=== PATIENT | female | born 1990 | race Two or more races ===

== ENCOUNTER 2020-01-02 11:00 | Emergency (ER) | payer MEDICAID ==
[~2020-01-02] VITALS: Ht 162.6 cm; Wt 74.2 kg
[~2020-01-02 11:00] MED LIST: ACET325T14 PO; ACET650S21 PO; DOCU-131 PO; IBUP-1222 PO; OXYC5CAP2 PO; PREN-3 PO
--- NOTE | 2020-01-02 11:28 | NUR ---
GIVEN PADS/UNDERWEAR. PROVIDER IN ROOM. PLAN LABS/US. VSS, TACHY 110S BUT ANXIOUS. DENEIS DIZZINESS/CP. CALL CANNON IN REACH. STS HAD CRAMPING YEST.
[2020-01-02 11:41] VITALS: BP 114/73
--- NOTE | 2020-01-02 11:41 | NUR ---
pt passed large blood clot. c/o dizzy. vss. given fresh pad/brief. fall precs/call tate. as
[2020-01-02 11:44] LABS: BASOPHILS # (AUTO) 0.02 x10^3/uL (0-0.1); BASOPHILS % (AUTO) 0 % (0-1); EOSINOPHILS % (AUTO) 1 % (1-7); LYMPHOCYTES # (AUTO) 1.22 x10^3/uL (1-3.4); LYMPHOCYTES % (AUTO) 15 % (22-44); MD NO; MEAN CORPUSCULAR HEMOGLOBIN 28.9 pg (27.0-34.8); MEAN CORPUSCULAR HGB CONC 33.7 g/dL (32.4-35.8); MEAN CORPUSCULAR VOLUME 85.8 fL (80-100); MEAN PLATELET VOLUME 9.8 fL (7.4-10.4); MONOCYTES # (AUTO) 0.62 x10^3/uL (0.2-0.8); MONOCYTES % (AUTO) 8 % (2-9); NEUTROPHILS # (AUTO) 6.27 x10^3/uL (1.8-6.8); NEUTROPHILS % (AUTO) 76 % (42-75); PLATELET COUNT 204 x10^3/uL (130-400); RED BLOOD COUNT 4.93 x10^6/uL (3.82-5.3); RED CELL DISTRIBUTION WIDTH 12.1 % (9.6-15.2)
[2020-01-02 11:49] LABS: ALBUMIN 3.9 g/dL (3.4-5.0); ANION GAP 9 mmol/L (5-15); CALCIUM 8.9 mg/dL (8.5-10.1); CHLORIDE 110 mmol/L (98-107)
[2020-01-02 11:56] LABS: ALANINE AMINOTRANSFERASE 26 U/L (12-78); ALKALINE PHOSPHATASE 81 U/L (45-117); BILIRUBIN,TOTAL 0.6 mg/dL (0.2-1.0); CREATININE 0.54 mg/dL (0.55-1.02); TOTAL PROTEIN 7.4 g/dL (6.4-8.2)
--- NOTE | 2020-01-02 12:14 | NUR ---
robbi in room for eval. pt to us. as
--- NOTE | 2020-01-02 13:45 | NUR ---
GIVEN RHOGAM, 2 RN CHECK. WCTM.
== END 2020-01-02 14:10 | disposition home or self-care (01) ==
LOC: ED 12:22
DX: O20.0 Threatened abortion (principal); Z3A.00 Weeks of gestation of pregnancy not specified
CPT/HCPCS: 36415; 76830; 80053; 84702; 84703; 85025; 86850; 86900; 99284; J2790